=== PATIENT | female | born 1995 | race African-American/Black ===

== ENCOUNTER 2020-04-11 10:50 | Emergency (ER) | payer OTHER, SELFPAY ==
[2020-04-11 11:01] VITALS: BP 132/85; PULSE 96; RESP 20; TEMP 36.3; O2SAT 100
--- NOTE | 2020-04-11 11:12 | ED.FEMALEGU ---
HPI - Female Genitourinary General Chief complaint: Urogenital-Female Stated complaint: abd pain/ Time Seen by Provider: 04/11/20 11:10 Source: patient and RN notes reviewed Mode of arrival: ambulatory Limitations: no limitations History of Present Illness HPI Narrative: 24-year-old female who presents to [facility] with complaints of urgency of urination, and frequency of urination. She is 6 to 8 weeks , did have intercourse yesterday, felt crampy with no bleeding or discharge noted. for short while after intercourse only. Patient denies any fevers, chills or sweats, no flank pain or suprapubic tenderness noted,has nausea but no vomiting or diarrhea. MD elicited complaint: dysuria, pelvic pain (Crampy after intercourse) and suspected Onset (ago): day(s) (1) Location of symptoms: other (urgency and frequency, crampy after intercourse short interval) Severity: mild Female Urogenital Radiation: Non-Radiating Quality of pain: cramping Consistency: improved Vaginal discharge: none Vaginal bleeding: none Urinary symptoms: Urgency and Frequency Exacerbating factors: none Relieving factors: none Associated symptoms: denies other symptoms Treatment prior to arrival: none Sexual activity: Yes Patient : Yes Possible : at home test positive Date of Last Menstrual Period: 02/02/20 Expected Date of Delivery: 11/08/20 Related Data Allergies Allergy/AdvReac Type Severity Reaction Status Date / Time No Known Allergies Allergy Verified 04/11/20 10:58 Review of Systems Review of Systems: Narrative: CONSTITUTIONAL: Denies fever, chills, or sweats. EYES: Denies visual changes, redness, or discharge. ENT: Denies rhinorrhea, congestion, sore throat, or otalgia. CARDIOVASCULAR: Denies chest pain, palpitations, or edema. RESPIRATORY: Denies cough or dyspnea. GASTROINTESTINAL: Denies abdominal pain, some nausea due to , no vomiting, or diarrhea. GENITOURINARY: positive urgency and frequency of urination, no burning or pain with urination or any visual hematuria, states she is 6-8 weeks according to last menses on January. SKIN: Denies rash or itching. MUSCULOSKELETAL: Denies back pain, joint pain, or myalgia. NEUROLOGIC: Denies headache, numbness, or weakness. PSYCHIATRIC: Denies anxiety or depression. All systems reviewed & are unremarkable except as noted in HPI and below PMFSH Surgical History Surgical History (Updated 04/11/20 @ 12:00 by Rachele Gresham NP) S/P foot surgery, right Social History Social History (Updated 04/11/20 @ 12:00 by Rachele Gresham NP) Smoking status: Never smoker Living arrangements: with family Gender identity (if verbalized by the patient): Female Comments At time of signature, agree with nursing past medical, surgical, social history. There is no relevant family history pertinent to the presenting complaint Exam Narrative: Exam Narrative: GENERAL: Well-appearing, well-nourished, and in no acute distress. HEAD: Normocephalic, atraumatic. EYES: PERRLA and EOMI. ENT: Nares clear, no rhinorrhea or epistaxis. Mucous membranes moist. NECK: Supple. CHEST: Clear to auscultation. No respiratory distress. HEART: Regular rate and rhythm. No murmur heard. Normal peripheral pulses. ABDOMEN: Soft, nontender, nondistended, normal active bowel sounds. EXTREMITIES: Normal range of motion. No edema. SKIN: Warm, dry, no rash. NEURO: No focal deficits. Alert and oriented x3. Course Vital Signs Vital signs: Vital Signs Temperature 36.3 C L 04/11/20 11:01 Pulse Rate 96 04/11/20 11:01 Respiratory Rate 04/11/20 11:01 Blood Pressure 132/85 04/11/20 11:01 Pulse Oximetry 100 04/11/20 11:01 Temperature 36.3 C L 04/11/20 11:01 Pulse Rate 96 04/11/20 11:01 Respiratory Rate 04/11/20 11:01 Blood Pressure 132/85 04/11/20 11:01 Pulse Oximetry 100 04/11/20 11:01 MDM - Female Genitourinary Differential Diagnos
== END 2020-04-11 11:34 | disposition home or self-care (01) ==
PROVIDERS: Emergency Provider Registered Nurse
DX: O23.41 Unspecified infection of urinary tract in pregnancy, first trimester (principal); Z3A.00 Weeks of gestation of pregnancy not specified
CPT/HCPCS: 81003; 87086; 87088; 99213; G0463